=== PATIENT | male | born 1960 | race Caucasian/White ===

== ENCOUNTER 2017-01-14 21:44 | Emergency (ER) | payer SELFPAY ==
[2017-01-14 21:44] VITALS: BMI 32.5
[2017-01-14 22:45] VITALS: TEMP 98.2; O2SAT 99
[2017-01-14] MEDS ORDERED: Sodium Chloride 0.9% 500 ML IV ONE (23:55)
[2017-01-15] MEDS ORDERED: Sodium Chloride 0.9% 1,000 ML ONE (00:18)
--- NOTE | 2017-01-15 00:24 | C.PDOC ---
History Of Present Illness Patient is a 56 year old male who presents to the ER with a complaint of right flank pain intermittently for the past few days, associated with hematuria. Denies fever or chills. Chief Complaint (Nursing): Male Genitourinary History Per: Patient History/Exam Limitations: no limitations Onset/Duration Of Symptoms: Days Current Symptoms Are (Timing): Still Present Quality Of Discomfort: Unable To Describe Associated Symptoms: Urinary Symptoms. denies: Fever, Chills Alleviating Factors: None Recent travel outside of the [place]: No Past Medical History Reviewed: Historical Data, Nursing Documentation, Vital Signs Vital Signs: Last Vital Signs Temp 98.2 F 01/14/17 22:40 Pulse 83 01/14/17 22:40 Resp 16 01/14/17 22:40 BP 128/76 01/14/17 22:40 Pulse Ox 99 01/15/17 01:45 - Medical History PMH: No Chronic Diseases Surgical History: No Surg Hx Family History: States: Unknown Family Hx - Social History Hx Alcohol Use: No Hx Substance Use: No - Immunization History Hx Tetanus Toxoid Vaccination: No Hx Influenza Vaccination: No Hx Pneumococcal Vaccination: No Review Of Systems Constitutional: Negative for: Fever, Chills Genitourinary: Positive for: Hematuria Musculoskeletal: Positive for: Back Pain (Right flank) Physical Exam - Physical Exam Appears: Non-toxic Skin: Normal Color, Warm, Dry Head: Atraumatic, Normacephalic Oral Mucosa: Moist Chest: Symmetrical, No Tenderness Cardiovascular: Rhythm Regular, No Murmur Respiratory: Normal Breath Sounds, No Rales, No Rhonchi, No Wheezing Gastrointestinal/Abdominal: Soft, No Tenderness Back: CVA Tenderness (Mild right sided) Neurological/Psych: Oriented x3, Normal Speech, Normal Cognition ED Course And Treatment - Laboratory Results Result Diagrams: 01/15/17 00:41 01/15/17 00:41 O2 Sat by Pulse Oximetry: 99 (Room air) Pulse Ox Interpretation: Normal - CT Scan/US CT abd/pel Other Rad Studies (CT/US): Read By Radiologist, Radiology Report Reviewed CT/US Interpretation: EXAM: CT Abdomen and Pelvis Without Intravenous Contrast. CLINICAL HISTORY: 56 years old, male; Pain; Abdominal pain; Flank; Right lower quadrant (rlq); Additional info: Right. flank pain. TECHNIQUE: Axial computed tomography images of the abdomen and pelvis without intravenous contrast. This. CT exam was performed using one or more of the following dose reduction techniques: automated. exposure control, adjustment of the mA and/or kV according to patient size, and/or use of iterative. reconstruction technique. Coronal and sagittal reformatted images were created and reviewed. COMPARISON: No relevant prior studies available. FINDINGS: Lower thorax: Nonspecific peripheral area of opacity in the right lower lobe, could be infection. atelectasis or scarring. ABDOMEN: Liver: Fatty liver. Gallbladder and bile ducts: Unremarkable. No calcified stones. No ductal dilation. Pancreas: Unremarkable. No ductal dilation. Spleen: Unremarkable. No splenomegaly. Adrenals: Unremarkable. No mass. Kidneys and ureters: 6 mm calcification the right renal pelvis not causing hydronephrosis. No. ureteral dilatation or distal ureteral calculus. Stomach and bowel: Unremarkable. No obstruction. No mucosal thickening. Appendix: No findings to suggest acute appendicitis. PELVIS: Bladder: Unremarkable. No stones. Reproductive: Unremarkable as visualized. ABDOMEN and PELVIS: Intraperitoneal space: Unremarkable. No free air. No significant fluid collection. Bones/joints: No acute fracture. No dislocation. Soft tissues: Unremarkable. Vasculature: Unremarkable. No abdominal aortic aneurysm. Lymph nodes: Unremarkable. No enlarged lymph nodes. IMPRESSION: 1. Nonspecific peripheral area of opacity in the right lower lobe, could be infection atelectasis or. scarring. 2. 6 mm calcification the right renal pelvis not causing hydronephrosis. No ureteral dilatation or distal. ureteral calculus. Progress Note: CT abd/pel, blood work, and urinalysis ordered. Toradol and IV fluids administered. Disposition Counseled Patient/Family Regarding: Diagnosis - Disposition Referrals: [facility] [Outside] Tahir Dale MD [Staff Provider] - Disposition: HOME/ ROUTINE Disposition Time: 03:00 Condition: STABLE Prescriptions: Ciprofloxacin [Cipro] 1 tab PO BID #14 tab Tamsulosin [Flomax] 0.4 mg PO DAILY #10 cap traMADol/Acetaminophen [Ultracet 325 MG-37.5 MG] 1 tab PO Q6 #14 tab Instructions: Kidney Stones (GEN), Flank Pain (ED) Forms: Gen Discharge Inst Macedonian Print Language: LUXEMBOURGISH - POA Present On Arrival: None - Clinical Impression Clinical Impression: Renal calculus or stone, Renal colic on right side - Scribe Statement The provider has reviewed the documentation as recorded by the Scribe Eliu Dietrich All medical record entries made by the Connoribnathaniel were at my direction and personally dictated by me. I have reviewed the chart and agree that the record accurately reflects my personal performance of the history, physical exam, medical decision making, and the department course for this patient. I have also personally directed, reviewed, and agree with the discharge instructions and disposition.
[2017-01-15 00:45] LABS: BASO # 0.1 K/uL (0.0-0.2); EOS # 0.2 K/uL (0.0-0.7); EOS % 1.3 % (0.0-4.0); HEMOGLOBIN 13.4 g/dL (12.0-18.0); LYMPH # 4.5 K/uL (1.0-4.3); LYMPH % 39.1 % (20.0-40.0); MEAN CELL VOLUME 85.2 fL (80.0-94.0); MEAN CORPUSCULAR HGB CONC 32.8 g/dL (33.0-37.0); MEAN PLATELET VOLUME 8.5 fL (7.2-11.7); MONO # 0.8 K/uL (0.0-0.8); MONO % 6.9 % (0.0-10.0); NEUT # 5.9 K/uL (1.8-7.0); NEUT % 51.7 % (50.0-75.0); RBC 4.77 Mil/uL (4.40-5.90); RED CELL DISTRIBUTION WIDTH 13.3 % (11.5-14.5); WHITE BLOOD COUNT 11.5 K/uL (4.8-10.8)
[2017-01-15 00:53] LABS: INR 1.1
[2017-01-15 00:59] LABS: SQUAMOUS EPITHIAL 1 /hpf (0-5); URINE BILIRUBIN NEGATIVE (NEGATIVE); URINE BLOOD 3+ (NEGATIVE); URINE CLARITY Hazy (Clear); URINE COLOR Yellow (YELLOW); URINE GLUCOSE (UA) NORMAL (Normal); URINE LEUKOCYTE ESTERASE NEG Leu/uL (Negative); URINE NITRATE NEGATIVE (NEGATIVE); URINE PROTEIN 1+ mg/dL (NEGATIVE); URINE UROBILINOGEN NORMAL mg/dL (0.2-1.0)
[2017-01-15 01:19] LABS: AST/SGOT 52 U/L (17-59); GFR AFRICAN-AMERICAN > 60; GFR NON-AFRICAN AMERICAN > 60
[2017-01-15 01:20] LABS: ALT/SGPT 67 U/L (21-72); BLOOD UREA NITROGEN 18 mg/dL (9-20); CALCIUM 8.9 mg/dl (8.6-10.4); LIPASE 67 U/L (23-300)
[2017-01-15] MEDS ORDERED: Ciprofloxacin 400mg/200ml D5W 400 MG/200 ML BAG IVPB STA (01:39)
[2017-01-15] MEDS ORDERED: Ciprofloxacin 400mg/200ml D5W 400 MG/200 ML BAG IVPB ONE (01:53)
[2017-01-15 03:40] VITALS: BP 145/92; PULSE 79; RESP 20
--- NOTE | 2017-01-15 08:27 | CT ---
PROCEDURE: CT Abdomen and Pelvis without intravenous contrast HISTORY: right flank pain COMPARISON: None. TECHNIQUE: Multiple contiguous axial images were performed through the abdomen and pelvis without intravenous contrast. Subsequently, sagittal and coronal reformatted images were obtained. Radiation dose: Total exam DLP = 841 mGy-cm. This CT exam was performed using one or more of the following dose reduction techniques: Automated exposure control, adjustment of the mA and/or kV according to patient size, and/or use of iterative reconstruction technique. FINDINGS: LOWER THORAX: Nonspecific peripheral area of opacity in the right lower lobe, could be infection atelectasis or scarring. LIVER: Fatty infiltration of the liver. 5 millimeter hypodensity in the medial right hepatic lobe on series 3, image 31, too small to adequately characterize. Additional hypodensity measuring 5 millimeter seen within the left hepatic lobe on series 3, image 31 also, too small to adequately characterize. Focal fatty sparing adjacent to the gallbladder fossa. GALLBLADDER AND BILE DUCTS: Unremarkable. PANCREAS: Unremarkable. No gross lesion or ductal dilatation. SPLEEN: Unremarkable. ADRENALS: Unremarkable. No mass. KIDNEYS AND URETERS: 6 millimeter calcification in the right renal pelvis without significant hydronephrosis. VASCULATURE: Unremarkable. No aortic aneurysm. BOWEL: Unremarkable. No obstruction. No gross mural thickening. APPENDIX: No findings to suggest acute appendicitis. PERITONEUM: Unremarkable. No free fluid. No free air. LYMPH NODES: Unremarkable. No enlarged lymph nodes. BLADDER: Underdistended urinary bladder. REPRODUCTIVE: Unremarkable. BONES: No acute fracture. OTHER FINDINGS: None. IMPRESSION: Nonspecific peripheral area of opacity in the right lower lobe which may represent infection/infiltrate, atelectasis, or scarring. Clinical correlation. 6 millimeter calcification in the right renal pelvis without significant hydronephrosis. Additional findings as above. These findings were preliminarily reported at 12:42 a.m. on 01/15/[address] Prince Shetty from [employer].
== END 2017-01-15 03:41 | disposition home or self-care (01) ==
LOC: C.ER 21:44
DX: N20.0 Calculus of kidney (principal); R31.9 Hematuria, unspecified
CPT/HCPCS: 74176; 80053; 81001; 83690; 85025; 85610; 85730; 87086; 96361; 96365; 96375; 99284; J0744; J1885; J7040

== ENCOUNTER 2017-10-18 17:55 | Emergency (ER) | payer SELFPAY ==
[2017-10-18 17:56] VITALS: BMI 32.5
[2017-10-18 19:04] LABS: URINE BILIRUBIN NEGATIVE (NEGATIVE); URINE BLOOD 1+ (NEGATIVE); URINE CLARITY Clear (Clear); URINE COLOR Yellow (YELLOW); URINE GLUCOSE (UA) NORMAL (Normal); URINE LEUKOCYTE ESTERASE NEG Leu/uL (Negative); URINE PROTEIN NEGATIVE (NEGATIVE); URINE UROBILINOGEN NORMAL mg/dL (0.2-1.0)
[2017-10-18] MEDS ORDERED: Sodium Chloride 0.9% 1,000 ML IV ONE (19:08)
--- NOTE | 2017-10-18 19:19 | C.PDOC ---
History Of Present Illness 57 yo male w/PMHx of kidney stone come in for evaluation of urinary frequency for past 15 days associated with intermittent Right sided flank pain. Otherwise , pt denies fever, chills, known trauma or injury, CP, SOB, dyspnea, diaphoresis , palpitation, abd. pain, N/V/D, hematuria, pain or discomfort on urination. Ambulate to ED for evaluation, not in nay apparent distress. Time Seen by Provider: 10/18/17 18:33 Chief Complaint (Nursing): Male Genitourinary History Per: Patient Past Medical History Reviewed: Historical Data, Nursing Documentation, Vital Signs Vital Signs: Last Vital Signs Temp 98.0 F 10/18/17 20:20 Pulse 86 10/18/17 20:20 Resp 18 10/18/17 20:20 BP 127/79 10/18/17 20:20 Pulse Ox 96 10/18/17 20:20 - Medical History PMH: HTN, Kidney Stones Family History: States: Unknown Family Hx - Social History Hx Tobacco Use: No Hx Alcohol Use: No Hx Substance Use: No - Immunization History Hx Tetanus Toxoid Vaccination: No Hx Influenza Vaccination: No Hx Pneumococcal Vaccination: No Review Of Systems Except As Marked, All Systems Reviewed And Found Negative. Constitutional: Negative for: Fever, Chills ENT: Negative for: Throat Pain Cardiovascular: Negative for: Chest Pain, Palpitations Respiratory: Negative for: Cough, Shortness of Breath, Wheezing Gastrointestinal: Negative for: Nausea, Vomiting, Abdominal Pain, Diarrhea Genitourinary: Positive for: Frequency. Negative for: Dysuria, Incontinence, Hematuria, Penile Discharge Musculoskeletal: Positive for: Back Pain. Negative for: Neck Pain Skin: Negative for: Rash Neurological: Negative for: Altered Mental Status, Headache, Dizziness Physical Exam - Physical Exam Appears: Well, Non-toxic, No Acute Distress Skin: Normal Color, Warm, Dry, No Rash Head: Normacephalic Eye(s): bilateral: PERRL Nose: No Flaring, No Discharge Oral Mucosa: Moist Throat: No Erythema, No Drooling Neck: Trachea Midline, Supple Cardiovascular: Rhythm Regular Respiratory: No Decreased Breath Sounds, No Accessory Muscle Use, No Stridor, No Wheezing Gastrointestinal/Abdominal: Soft, No Tenderness, No Distention, No Guarding, No Rebound Back: No CVA Tenderness, Paraspinal Tenderness (mild Right sided lumbar) Extremity: No Tenderness, No Deformity Neurological/Psych: Oriented x3, Normal Speech ED Course And Treatment - Laboratory Results Result Diagrams: 10/18/17 19:21 10/18/17 19:21 Lab Interpretation: No Acute Changes O2 Sat by Pulse Oximetry: 95 Pulse Ox Interpretation: Normal - CT Scan/US CT abd/pelvis Other Rad Studies (CT/US): Radiology Report Reviewed CT/US Interpretation: CLINICAL HISTORY: 57 years old, male; Pain; Abdominal pain and other: Urinary frequency, back pain; Patient HX: 01-14-. 17 images sent. TECHNIQUE: Axial computed tomography images of the abdomen and pelvis without intravenous contrast. All CT. scans at this facility use one or more dose reduction techniques, viz.: automated exposure control;. ma/kV adjustment per patient size (including targeted exams where dose is matched to indication; i.e. head); or iterative reconstruction technique. COMPARISON: CT - ABD PELVIS W/O PO OR IV CONT 2017-01-15 00:23. FINDINGS: Lung bases: A small area of tree in bud pattern of inflammation is noted in the lateral basal segment. of the right lower lobe. ABDOMEN: Liver: The liver is low in density. There is a 6 mm low density lesion is seen in the lateral segment of. the left lobe of the liver measuring 10 H. This is unchanged from previous. There is a 1 cm lowdensity. lesion in the anterior superior segment of the right lobe near the dome. There is a 4 mm low. density lesion in the medial segment of the left lobe near the dome. There is a 5 mm low density. lesion in the lateral segment of the left lobe beneath the liver capsule. Gallbladder and bile ducts: Unremarkable. No calcified stones. No ductal dilation. Pancreas: Unremarkable. No ductal dilation. Spleen: Unremarkable. No splenomegaly. Adrenals: Unremarkable. No mass. Kidneys and ureters: There is moderate right-sided hydronephrosis and hydroureter. There is a. stone noted within the distal right ureter at the level of the fourth sacral segment. It measures 5 mm. with a density measurement of 915 H. Stomach and bowel: There are rare scattered colonic diverticula. No obstruction. No mucosal. thickening. Appendix: No findings to suggest acute appendicitis. PELVIS: Bladder: Unremarkable. No stones. Reproductive: Unremarkable as visualized. ABDOMEN and PELVIS: Intraperitoneal space: Unremarkable. No free air. No significant fluid collection. Bones/joints: There is a mild anterior compression deformity of the L2 vertebral body. This is. unchanged from previous. There is a mild dextroscoliosis of the mid lumbar spine. No dislocation. Soft tissues: Unremarkable. Vasculature: Unremarkable. No abdominal aortic aneurysm. Lymph nodes: Unremarkable. No enlarged lymph nodes. IMPRESSION: 1. Moderate right- sided hydronephrosis secondary to obstructing ureteral calculus. 2. Rare scattered colonic diverticula. 3. Hepatic steatosis with multiple low density liver lesions not significantly changed from previous. 4. Stable area of inflammatory change in the lateral basal segment of the right lower lobe. The lack of. change suggests that this is scarring. Thank you for allowing us to participate in the care of your patient. Dictated and Authenticated by: Divina Linares MD Progress Note: On re-eval, pt is afebrile, hemodynamicaly stable. Non-toxic. PUlseOx 96% RA. Neck: Supple, (-) JVD,. Lungs: CTA B/L, BS equal B/L. Abd: benign, (-) guarding, (-) rebound, (-) localized tenderness. Back: (-) CVA tenderness. Neurologicaly intact. CT abd/pelvis review (+)5mm Right distal ureter stone, mod hydronephrosis. Results review and discussed with patient. Pt advised and ref. to f/u with Urology in 1-2 days for re-eavl. return to ED if any worsening or new changes. Disposition Counseled Patient/Family Regarding: Studies Performed, Diagnosis, Need For Followup, Rx Given - Disposition Referrals: Asad Hill MD [Staff Provider] - Disposition: HOME/ ROUTINE Disposition Time: 21:02 Condition: STABLE Additional Instructions: Encourage fluids Strain urine take medication as prescribed Avoid greasy, spicy, fat food Follow up with Urology in 1-2 days for re-evaluation. Return to ED if any worsening or new changes. Prescriptions: Ciprofloxacin [Cipro] 500 mg PO BID #14 tab Tamsulosin [Flomax] 0.4 mg PO DAILY #20 cap Instructions: Kidney Stones in Adults Forms: [employer] (Paraguayan) Print Language: PALESTINIAN - Clinical Impression Clinical Impression: Renal colic on right side
[2017-10-18 19:25] LABS: BASO # 0.1 K/uL (0.0-0.2); BASO % 0.8 % (0.0-2.0); EOS # 0.1 K/uL (0.0-0.7); HEMOGLOBIN 13.3 g/dL (12.0-18.0); LYMPH % 40.3 % (20.0-40.0); MEAN CELL VOLUME 85.1 fL (80.0-94.0); MEAN CORPUSCULAR HEMOGLOBIN 28.6 pg (27.0-31.0); MEAN CORPUSCULAR HGB CONC 33.6 g/dL (33.0-37.0); MEAN PLATELET VOLUME 7.7 fL (7.2-11.7); MONO % 7.6 % (0.0-10.0); NEUT # 6.3 K/uL (1.8-7.0); NEUT % 50.3 % (50.0-75.0); RBC 4.66 Mil/uL (4.40-5.90); RED CELL DISTRIBUTION WIDTH 13.7 % (11.5-14.5); WHITE BLOOD COUNT 12.5 K/uL (4.8-10.8)
[2017-10-18 19:37] LABS: ALB/GLOB RATIO 0.9 (1.0-2.1); ALBUMIN 3.9 g/dL (3.5-5.0); ALT/SGPT 21 U/L (21-72); AST/SGOT 20 U/L (17-59); BLOOD UREA NITROGEN 19 mg/dL (9-20); CALCIUM 8.8 mg/dl (8.6-10.4); GFR AFRICAN-AMERICAN > 60; GFR NON-AFRICAN AMERICAN > 60
[2017-10-18 20:20] VITALS: RESP 18
[2017-10-18] MEDS ORDERED: Sodium Chloride 0.9% 1,000 ML ONE (21:38)
[2017-10-18 22:07] VITALS: BP 137/82; PULSE 90; TEMP 97.8; O2SAT 98
--- NOTE | 2017-10-19 09:10 | CT ---
CT abdomen and pelvis History: Flank pain. Comparison: CT dated 01/15/2017 Technique: Multiple contiguous axial images were performed through the abdomen and pelvis without intravenous contrast. Subsequently, sagittal and coronal reformatted images were obtained. Findings: Small area of tree-in-bud pattern of inflammation is noted in the lateral basal segment of the right lower lobe. 3 millimeter pulmonary nodule within the medial aspect of the right lower lobe on series 3, image 10. Diffuse decreased attenuation of the hepatic parenchymal cortex. 6 millimeter hypodensity in the lateral segment of the left hepatic lobe demonstrating a Hounsfield unit of 10, unchanged since the prior study. 1 centimeter low-attenuation lesion in the anterior superior segment of the right hepatic lobe near the dome. Additional 4 millimeter low-attenuation lesion in the medial segment of the left hepatic lobe near the dome. Additional 5 millimeter low-attenuation lesion in the lateral segment of the left hepatic lobe beneath the liver capsule. Correlation with multiphasic CT or MR would be helpful for further evaluation if clinically indicated. Gallbladder appears preserved. Pancreas and spleen appear preserved. Adrenals appear preserved. Moderate right-sided hydroureteronephrosis and hydroureter. 6 millimeter calculus noted within the distal right ureter at the level of the 4th sacral segment. Scattered colonic diverticuli. No findings to suggest acute appendicitis. Urinary bladder appears preserved. Mild anterior compression deformity of the L3 vertebral body. Mild dextroscoliotic curvature of the mid lumbar spine. Impression: Moderate right-sided hydroureteronephrosis secondary to an obstructing 5 millimeter calculus. Scattered colonic diverticuli. Hepatic steatosis with multiple low-density liver lesions. Correlation multiphasic CT or MR would be helpful further characterization if clinically indicated. Stable area of inflammatory change in the lateral basal segment of the right lower lobe. Clinical correlation. Small pulmonary nodule within the right lower lobe. Correlation with chest CT may be helpful. Additional findings as above. These findings were preliminarily reported at 8:11 p.m. on 10/18/[address] Divina Linares from [facility].
== END 2017-10-18 22:07 | disposition home or self-care (01) ==
LOC: C.ER 17:55
DX: N13.2 Hydronephrosis with renal and ureteral calculous obstruction (principal); Z87.442 Personal history of urinary calculi
CPT/HCPCS: 74176; 80053; 81001; 85025; 87086; 87491; 87591; 96360; 99285; J7040

== ENCOUNTER 2017-12-26 12:29 | Emergency (ER) | payer OTHER ==
[2017-12-26 12:29] VITALS: BMI 32.5
--- NOTE | 2017-12-26 13:06 | C.PDOC ---
History Of Present Illness Patient is a 57 y/o male, with Hx of hypertension, who presents to the ED with a complaint of right sided flank pain and dysuria for the last 2 months. Patient was seen here 2 months ago with the same symptoms; CT scan showed 5mm right kidney stone. Patient was told it would pass by itself, but symptoms persisted, prompting ED visit. Patient denies any fever, gross hematuria, or vomiting. Time Seen by Provider: 12/26/17 13:03 Chief Complaint (Nursing): Male Genitourinary History Per: Patient History/Exam Limitations: no limitations Onset/Duration Of Symptoms: Days (2 months), Persistent Current Symptoms Are (Timing): Still Present Associated Symptoms: Urinary Symptoms (dysuria). denies: Fever, Vomiting Recent travel outside of the [place]: No Past Medical History Reviewed: Historical Data, Nursing Documentation, Vital Signs Vital Signs: Last Vital Signs Temp 98.4 F 12/26/17 12:36 Pulse 82 12/26/17 12:36 Resp 20 12/26/17 12:36 BP 143/91 H 12/26/17 12:36 Pulse Ox 98 12/26/17 14:07 - Medical History PMH: HTN, Kidney Stones, Chronic Kidney Disease Surgical History: No Surg Hx Family History: States: No Known Family Hx - Social History Hx Tobacco Use: No Hx Alcohol Use: No Hx Substance Use: No - Immunization History Hx Tetanus Toxoid Vaccination: No Hx Influenza Vaccination: No Hx Pneumococcal Vaccination: No Review Of Systems Except As Marked, All Systems Reviewed And Found Negative. Constitutional: Negative for: Fever Gastrointestinal: Positive for: Abdominal Pain (right flank pain). Negative for : Vomiting Genitourinary: Positive for: Dysuria. Negative for: Hematuria Physical Exam - Physical Exam Additional Physical Exam Comments: Constitutional: No acute distress. Head: Normocephalic. Atraumatic. Eyes: PERRL. ENT: Moist mucous membranes. Neck: Supple. Cardiovascular: Regular rate. Radial pulse 2+ bilaterally. Chest: No tenderness. Respiratory: Clear to auscultation bilaterally. GI: Soft. Nontender. Nondistended. Back: No CVA tenderness. Musculoskeletal: No tenderness or swelling of extremities. Skin: No rash. Neurologic: Alert, no focal deficit. ED Course And Treatment - Laboratory Results Result Diagrams: 12/26/17 13:21 12/26/17 13:21 O2 Sat by Pulse Oximetry: 98 Progress Note: CT abdomen/pelvis, blood work, CBC, and urine ordered. Toradol and IV fluids administered. Medical Decision Making Medical Decision Making: CT today shows same size stone at R UVJ, progressing but will require follow up with urology, which patient has not arranged. Encouraged to make appointment, continue Flomax, pain medication. Disposition - Disposition Referrals: Terrie Hill MD [Staff Provider] - Disposition: HOME/ ROUTINE Disposition Time: 14:09 Condition: STABLE Additional Instructions: PROCEDURE: CT Abdomen and Pelvis without intravenous contrast HISTORY: R flank pain COMPARISON: Comparison is made to the previous study dated 10/18/2017 TECHNIQUE: Axial and reformatted coronal and sagittal CT images of the abdomen and pelvis were obtained without IV or oral contrast administration.. Contrast dose: 0 Radiation dose: Total exam DLP = 840.98 mGy-cm. This CT exam was performed using one or more of the following dose reduction techniques: Automated exposure control, adjustment of the mA and/or kV according to patient size, and/or use of iterative reconstruction technique. FINDINGS: LOWER THORAX: Unremarkable. LIVER: Again noted are small low-attenuation lesions in the liver which have not significantly changed when compared to the previous exam. GALLBLADDER AND BILE DUCTS: Unremarkable. PANCREAS: Unremarkable. No gross lesion or ductal dilatation. SPLEEN: Unremarkable. ADRENALS: Unremarkable. No mass. KIDNEYS AND URETERS: There is mild right hydronephrosis and hydroureter up to 5 millimeter calculus noted at the right UV junction in this study. The left kidney and left ureter are grossly unremarkable. VASCULATURE: Unremarkable. No aortic aneurysm. BOWEL: Colonic diverticulosis are again seen without evidence of diverticulitis. No evidence of small bowel obstruction. APPENDIX: No evidence of appendicitis. PERITONEUM: Unremarkable. No free fluid. No free air. LYMPH NODES: Unremarkable. No enlarged lymph nodes. BLADDER: Unremarkable. REPRODUCTIVE: Unremarkable. BONES: No acute fracture. OTHER FINDINGS: None. IMPRESSION: Mild right hydronephrosis and hydroureter up to 5 millimeter calculus at the right UV junction. Otherwise no significant interval change compared to the previous study dated . Prescriptions: Ibuprofen [Motrin] 600 mg PO Q6 #25 tab Tamsulosin [Flomax] 0.4 mg PO DAILY #5 cap Instructions: Kidney Stones (DC) Forms: [employer] (Croatian) - Clinical Impression Clinical Impression: Renal colic on right side - Scribe Statement The provider has reviewed the documentation as recorded by the Scribe Elvira Hernandez All medical record entries made by the Scribe were at my direction and personally dictated by me. I have reviewed the chart and agree that the record accurately reflects my personal performance of the history, physical exam, medical decision making, and the department course for this patient. I have also personally directed, reviewed, and agree with the discharge instructions and disposition.
[2017-12-26] MEDS ORDERED: Sodium Chloride 0.9% 1,000 ML IV STA (13:07)
[2017-12-26 13:11] LABS: URINE BILIRUBIN NEGATIVE (NEGATIVE); URINE BLOOD NEGATIVE (NEGATIVE); URINE CLARITY Clear (Clear); URINE COLOR Yellow (YELLOW); URINE GLUCOSE (UA) NORMAL (Normal); URINE LEUKOCYTE ESTERASE NEG Leu/uL (Negative); URINE PROTEIN NEGATIVE (NEGATIVE); URINE UROBILINOGEN NORMAL mg/dL (0.2-1.0)
[2017-12-26] MEDS ORDERED: Sodium Chloride 0.9% 1,000 ML ONE (13:13)
[2017-12-26 13:27] LABS: BASO % 0.4 % (0.0-2.0); EOS # 0.3 K/uL (0.0-0.7); EOS % 2.9 % (0.0-4.0); HEMOGLOBIN 12.7 g/dL (12.0-18.0); LYMPH % 46.4 % (20.0-40.0); MEAN CELL VOLUME 84.7 fL (80.0-94.0); MEAN CORPUSCULAR HEMOGLOBIN 28.7 pg (27.0-31.0); MEAN CORPUSCULAR HGB CONC 33.9 g/dL (33.0-37.0); MEAN PLATELET VOLUME 8.3 fL (7.2-11.7); MONO # 0.8 K/uL (0.0-0.8); MONO % 7.5 % (0.0-10.0); NEUT # 4.6 K/uL (1.8-7.0); NEUT % 42.8 % (50.0-75.0); NRBC % 0.1 % (0.0-2.0); RBC 4.42 Mil/uL (4.40-5.90); RED CELL DISTRIBUTION WIDTH 13.7 % (11.5-14.5); WHITE BLOOD COUNT 10.8 K/uL (4.8-10.8)
[2017-12-26 13:45] LABS: ALBUMIN 3.8 g/dL (3.5-5.0); ALT/SGPT 25 U/L (21-72); AST/SGOT 24 U/L (17-59); BLOOD UREA NITROGEN 16 mg/dL (9-20); CALCIUM 9.2 mg/dl (8.6-10.4); GFR AFRICAN-AMERICAN > 60; GFR NON-AFRICAN AMERICAN > 60
--- NOTE | 2017-12-26 14:06 | CT ---
PROCEDURE: CT Abdomen and Pelvis without intravenous contrast HISTORY: R flank pain COMPARISON: Comparison is made to the previous study dated 10/18/2017 TECHNIQUE: Axial and reformatted coronal and sagittal CT images of the abdomen and pelvis were obtained without IV or oral contrast administration.. Contrast dose: 0 Radiation dose: Total exam DLP = 840.98 mGy-cm. This CT exam was performed using one or more of the following dose reduction techniques: Automated exposure control, adjustment of the mA and/or kV according to patient size, and/or use of iterative reconstruction technique. FINDINGS: LOWER THORAX: Unremarkable. LIVER: Again noted are small low-attenuation lesions in the liver which have not significantly changed when compared to the previous exam. GALLBLADDER AND BILE DUCTS: Unremarkable. PANCREAS: Unremarkable. No gross lesion or ductal dilatation. SPLEEN: Unremarkable. ADRENALS: Unremarkable. No mass. KIDNEYS AND URETERS: There is mild right hydronephrosis and hydroureter up to 5 millimeter calculus noted at the right UV junction in this study. The left kidney and left ureter are grossly unremarkable. VASCULATURE: Unremarkable. No aortic aneurysm. BOWEL: Colonic diverticulosis are again seen without evidence of diverticulitis. No evidence of small bowel obstruction. APPENDIX: No evidence of appendicitis. PERITONEUM: Unremarkable. No free fluid. No free air. LYMPH NODES: Unremarkable. No enlarged lymph nodes. BLADDER: Unremarkable. REPRODUCTIVE: Unremarkable. BONES: No acute fracture. OTHER FINDINGS: None. IMPRESSION: Mild right hydronephrosis and hydroureter up to 5 millimeter calculus at the right UV junction. Otherwise no significant interval change compared to the previous study dated 10/18/2017.
[2017-12-26 14:36] VITALS: BP 135/82; PULSE 70; RESP 18; TEMP 98.5; O2SAT 99
== END 2017-12-26 14:36 | disposition home or self-care (01) ==
LOC: C.ER 12:29
DX: N13.2 Hydronephrosis with renal and ureteral calculous obstruction (principal); Z87.442 Personal history of urinary calculi
CPT/HCPCS: 74176; 80053; 81001; 85025; 87086; 96361; 96374; 99285; J1885; J7030